=== PATIENT | female | born 1990 | race American Indian/Alaskan Native ===

== ENCOUNTER 2019-08-22 11:43 | Outpatient (CLI) | payer MEDICAID ==
[2019-08-22] MEDS ORDERED: LACTATED RINGERS 1,000 ML ONE (12:11)
[2019-08-22 12:31] LABS: Bacteria,Urine 4+ /HPF (Negative); Bilirubin,Urine NEG (Negative); Blood,Urine NEG (Negative); Color,Urine Straw (Yellow); Protein,Urine <15 mg/dL mg/dL (Negative); Urobilinogen,Urine < 2.0 mg/dL (<2.0)
[2019-08-22] MEDS ORDERED: LACTATED RINGERS 1,000 ML IV SCH (13:00)
[2019-08-22] MEDS ORDERED: TERBUTALINE 1 MG/1 ML INJ ONE (13:45)
[2019-08-22] MEDS ORDERED: LACTATED RINGERS 500 ML IV ONE (13:50)
[2019-08-22] MEDS ORDERED: TERBUTALINE 1 MG/1 ML INJ SUB-Q SCH (14:00)
[2019-08-22 14:41] VITALS: BP 114/72
--- NOTE | 2019-08-22 14:44 | Ultrasound Report ---
ULTRASOUND OBSTETRIC Limited INDICATION / CLINICAL INFORMATION: labor. TECHNIQUE: Transabdominal. COMPARISON: None available. FINDINGS: There is a single intrauterine . Heart Rate: 156 beats per minute. Estimated Weight in grams (if calculated): Not performed Estimated Weight Growth Percentile (if calculated): Not performed Position: cephalic. Placenta: Left lateral, grade 1 and free of the os. Amniotic Fluid Volume: Not assessed on this limited study IMPRESSION: 1. Single, living intrauterine . Limited study. 2. No significant sonographic abnormality. Signer Name: Alvaro Nguyen MD Signed: 08/22/2019 2:40 PM Workstation Name: [id number]
== END 2019-08-24 02:54 | disposition home or self-care (01) ==
LOC: TRG 11:43 → APU 11:52 → TRG 08-24 02:54
PROVIDERS: ATTEND Obstetrics & Gynecology
DX: O26.892 Other specified pregnancy related conditions, second trimester (principal); R10.9 Unspecified abdominal pain; Z3A.26 26 weeks gestation of pregnancy
CPT/HCPCS: 59025; 76815; 81001; 96360; 96372; J3105; J7120; 96361